=== PATIENT | female | born 1990 | race Caucasian/White ===

== ENCOUNTER 2017-03-07 08:33 | Emergency (ER) | payer MEDICAID ==
[2017-03-07 08:42] VITALS: BP 97/55
--- NOTE | 2017-03-07 09:23 | UC ---
Eye Complaint HPI - History of Current Complaint Chief Complaint: UCEytonya Stated Complaint: EYE ISSUE Time Seen by Provider: 03/07/17 08:59 Hx Obtained From: Patient Hx Last Menstrual Period: 03/02/17 ?: No Onset/Duration: Sudden Onset - started last blessing with faint achey feeling in R eye, this am she awoke with eye crusted shut and yellowish drainage. no visual changes. also noticed bump on eyelid. does not wear contacts Severity Initially: Mild Severity Currently: Mild Location of Injury: Eye Lid (lower) - R Character: Dull Aggravating Factor(s): Nothing Alleviating Factor(s): Nothing Associated Signs And Symptoms: Positive: Drainage (Clear). Negative: Photophobia, Vision Impairment Bilateral - Allergies/Home Medications Allergies/Adverse Reactions: Allergies Allergy/AdvReac Type Severity Reaction Status Date / Time No Known Allergies Allergy Verified 03/07/17 08:42 PMH/Surg Hx/FS Hx/Imm Hx Previously Healthy: Yes - Surgical History Surgical History: None - Family History Known Family History: Positive: None - Social History Occupation: Student Lives: With Family Alcohol Use: Occasionally Substance Use Type: None Smoking Status (MU): Never Smoked Tobacco Have You Smoked in the Last Year: No Review of Systems Constitutional: Negative Skin: Negative Eyes: Drainage, Eye Redness ENT: Negative Respiratory: Negative Cardiovascular: Negative Neurological: Negative Psychological: Negative All Other Systems Reviewed And Are Negative: Yes Physical Exam Triage Information Reviewed: Yes Appearance: Well-Appearing, No Pain Distress, Well-Nourished Vital Signs: Initial Vital Signs Temp 98.2 F 03/07/17 08:38 Pulse 64 03/07/17 08:38 Resp 18 03/07/17 08:38 BP 97/55 03/07/17 08:38 Pulse Ox 100 03/07/17 08:38 Vital Signs Reviewed: Yes Eyes: Positive: Conjunctiva Inflamed - Right, Other: - small erythemic raised lesion lower R lid ENT: Positive: Normal ENT inspection Respiratory Exam: Normal Cardiovascular Exam: Normal Psychological Exam: Normal Skin Exam: Normal Skin: Negative: rashes Eye Complaint Course/Dx - Differential Dx/Diagnosis Differential Diagnosis/HQI/PQRI: Conjunctivitis, Corneal Abrasion, Foreign Body , Other - hordeolum Provider Diagnoses: conjunctivitis OD. hordeolum OD Discharge - Discharge Plan Condition: Stable Disposition: HOME Prescriptions: Ofloxacin 0.3%(Ophth)(Nf) [Ocuflox OPTH 0.3%(NF)] 2 drop RIGHT EYE Q4HR #5 ml Patient Education Materials: Conjunctivitis (ED), Stye (ED) Referrals: No Primary Care Phys,NOPCP [Primary Care Provider] - Abundio Pagan MD [Medical Doctor] - 3 Days (if no better) Additional Instructions: apply eye drops as directed use warm pac to botton eyelid to help resolve sty if no better in 3 days please follow-up with opthamologist
== END 2017-03-07 09:35 | disposition home or self-care (01) ==
LOC: UCEAST 08:33
DX: H10.31 Unspecified acute conjunctivitis, right eye (principal); H00.012 Hordeolum externum right lower eyelid
CPT/HCPCS: 99212; G0463